=== PATIENT | female | born 1995 | race Caucasian/White ===

== ENCOUNTER 2018-06-26 21:10 | Inpatient (IN) | payer OTHER ==
[~2018-06-26] VITALS: Ht 160 cm; Wt 69.4 kg
[2018-06-26] MEDS ORDERED: SERT50TA5 PO (21:36)
[2018-06-26] MEDS ORDERED: ONDANSETRON ODT 4 MG PO ONE (22:00)
[2018-06-26] MEDS ORDERED: PLEASE ENTER ALLERGIES MC SCH (22:00)
[2018-06-26] MEDS ORDERED: HYDROmorphone 1 MG/ML, 1ML IM ONE (22:00)
[2018-06-26 22:03] LABS: MICROSCOPIC AUTO
[2018-06-26 22:04] LABS: CULTURE INDICATED? YES
[2018-06-26 22:29] LABS: MEAN CORPUSCULAR HEMOGLOBIN 32.8 pg (27.0-34.8); MEAN CORPUSCULAR HGB CONC 34.5 g/dL (32.4-35.8); MEAN CORPUSCULAR VOLUME 95.2 fL (80-100); MEAN PLATELET VOLUME 7.9 fL (7.4-10.4); PLATELET COUNT 271 x10^3/uL (130-400); RED BLOOD COUNT 3.19 x10^6/uL (3.82-5.3); RED CELL DISTRIBUTION WIDTH 15.2 % (9.6-15.2)
[2018-06-26 22:37] LABS: ALANINE AMINOTRANSFERASE 19 U/L (12-78); ALBUMIN 2.4 g/dL (3.4-5.0); ANION GAP 11 mmol/L (5-15); CALCIUM 7.6 mg/dL (8.5-10.1); CHLORIDE 105 mmol/L (98-107); CREATININE 1.07 mg/dL (0.55-1.02)
[2018-06-26 22:42] LABS: ALKALINE PHOSPHATASE 146 U/L (45-117); BILIRUBIN,TOTAL 0.3 mg/dL (0.2-1.0); TOTAL PROTEIN 6.5 g/dL (6.4-8.2)
[2018-06-26 22:51] LABS: MD YES
[2018-06-26 22:54] LABS: ANISOCYTOSIS 1+; BAND#(MANUAL) 1.11 x10^3/uL; BANDS%(MANUAL) 6 % (0-7); LYMPH#(MANUAL) 1.67 x10^3/uL (1-3.4); LYMPHS% (MANUAL) 9 % (22-44); MONOS#(MANUAL) 0.19 x10^3/uL (0.3-2.7); MONOS% (MANUAL) 1 % (2-9); SEG#(MANUAL) 15.54 x10^3/uL (1.8-6.8); SEGS% (MANUAL) 84 % (42-75)
[2018-06-26 22:55] LABS: <PLATELET ESTIMATE> ADEQUATE; <PLT MORPHOLOGY> NORMAL PLT MORPH
[2018-06-26] MEDS ORDERED: HYDROmorphone 2 MG/ML, 1ML ONE (23:10)
[2018-06-26] MEDS ORDERED: ONDANSETRON ODT 4 MG ONE (23:10)
[2018-06-26] MEDS ORDERED: POTASSIUM CHLORIDE 20 MEQ TAB.ER.PRT PO ONE (23:30)
[2018-06-26] MEDS ORDERED: SODIUM CHLORIDE 0.9% 1,000ML IVBOLUS ONE (23:30)
[2018-06-26] MEDS ORDERED: SODIUM CHLORIDE FLUSH 10ML SYR IVF ONE (23:30)
[2018-06-26] MEDS ORDERED: ACETAMINOPHEN 325 MG TABLET PO ONE (23:30)
[2018-06-26] MEDS ORDERED: CEFTRIAXONE 1,000 MG in SODIUM CHLORIDE 0.9% 50 ML IVPB ONE (23:30)
[2018-06-26] MEDS ORDERED: POTASSIUM CHLORIDE 20 MEQ TAB.ER.PRT ONE (23:32)
[2018-06-26] MEDS ORDERED: CEFTRIAXONE PMX 1GM/50ML 50 ML ONE (23:32)
[2018-06-26] MEDS ORDERED: ACETAMINOPHEN 325 MG TABLET ONE (23:32)
[2018-06-27] VITALS (12 sets, daily range): BP systolic 80–107; BP diastolic 46–66
[2018-06-27] MEDS ORDERED: HYDROmorphone 1 MG/ML, 1ML IV ONE
[2018-06-27] MEDS ORDERED: SODIUM CHLORIDE 0.9% 1,000 ML IV SCH (00:03)
[2018-06-27] MEDS ORDERED: CEFTRIAXONE PMX 1GM/50ML 50 ML IV SCH (00:30)
[2018-06-27] MEDS ORDERED: morphine SULFATE 10 MG/ML, 1ML IVPush PRN (00:30)
[2018-06-27] MEDS ORDERED: ONDANSETRON 2MG/ML, 2ML IVPush PRN (00:30)
[2018-06-27] MEDS ORDERED: ONDANSETRON ODT 4 MG PO PRN (00:30)
[2018-06-27] MEDS ORDERED: POTASSIUM CHLORIDE 20 MEQ TAB.ER.PRT PO ONE (01:00)
[2018-06-27] MEDS: CEFTRIAXONE PMX 2GM/50ML 50 ML IV SCH (02:23)
[2018-06-27] MEDS: ENOXAPARIN 40 MG/0.4 ML SQ SCH (02:24)
[2018-06-27] MEDS ORDERED: SODIUM CHLORIDE 0.9% 1,000ML IVBOLUS ONE (03:30)
[2018-06-27 05:13] LABS: ANION GAP 8 mmol/L (5-15); CALCIUM 6.4 mg/dL (8.5-10.1); CHLORIDE 111 mmol/L (98-107)
[2018-06-27 05:14] LABS: CREATININE 0.76 mg/dL (0.55-1.02)
[2018-06-27 05:17] LABS: MEAN CORPUSCULAR HEMOGLOBIN 33.1 pg (27.0-34.8); MEAN CORPUSCULAR HGB CONC 34.8 g/dL (32.4-35.8); MEAN CORPUSCULAR VOLUME 95.2 fL (80-100); MEAN PLATELET VOLUME 8.2 fL (7.4-10.4); PLATELET COUNT 252 x10^3/uL (130-400); RED BLOOD COUNT 2.78 x10^6/uL (3.82-5.3); RED CELL DISTRIBUTION WIDTH 15.7 % (9.6-15.2)
[2018-06-27 06:21] LABS: MD YES
[2018-06-27 06:22] LABS: BAND#(MANUAL) 3.23 x10^3/uL; BANDS%(MANUAL) 15 % (0-7); EOS#(MANUAL) 0.22 x10^3/uL (0.0-0.4); EOS% (MANUAL) 1 % (1-7); LYMPH#(MANUAL) 1.72 x10^3/uL (1-3.4); LYMPHS% (MANUAL) 8 % (22-44); MONOS#(MANUAL) 1.08 x10^3/uL (0.3-2.7); MONOS% (MANUAL) 5 % (2-9); SEG#(MANUAL) 15.27 x10^3/uL (1.8-6.8); SEGS% (MANUAL) 71 % (42-75)
[2018-06-27 06:24] LABS: <PLATELET ESTIMATE> ADEQUATE; <PLT MORPHOLOGY> NORMAL PLT MORPH; <RBC MORPHOLOGY> NORMAL; TOXIC GRAN 1+
[2018-06-27] MEDS ORDERED: MAGNESIUM SULFATE PMX 2GM/50ML 50 ML IV ONE (07:30)
[2018-06-27] MEDS: SODIUM CHLORIDE 0.9% 1,000 ML IV SCH ×3 (08:54→23:26)
[2018-06-27] MEDS: POTASSIUM CHLORIDE 20 MEQ TAB.ER.PRT PO SCH ×2 (08:59→16:56)
[2018-06-27] MEDS: SERTRALINE 50MG TABLET PO SCH (08:59)
[2018-06-27] MEDS: KETOROLAC 30 MG/1 ML IVPush PRN ×2 (10:38→20:53)
[2018-06-27 14:34] LABS: AMPHETAMINE SCREEN, URINE Negative (Negative); BARBITURATE SCREEN, URINE Negative (Negative); BENZODIAZEPINE SCREEN, URINE Negative (Negative); CANNABINOID SCREEN, URINE Negative (Negative); COCAINE SCREEN, URINE Negative (Negative); METHADONE SCREEN, URINE Negative (Negative); OPIATE SCREEN, URINE Negative (Negative)
[2018-06-27] MEDS: ACETAMINOPHEN 325 MG TABLET PO PRN (20:53)
[2018-06-28] MEDS: CEFTRIAXONE PMX 2GM/50ML 50 ML IV SCH (01:42)
[2018-06-28] MEDS: ENOXAPARIN 40 MG/0.4 ML SQ SCH (01:42)
[2018-06-28 01:49] VITALS: BP 97/62
[2018-06-28] MEDS: SODIUM CHLORIDE 0.9% 1,000 ML IV SCH ×3 (03:00→17:08)
[2018-06-28 06:25] LABS: MEAN CORPUSCULAR HEMOGLOBIN 32.7 pg (27.0-34.8); MEAN CORPUSCULAR HGB CONC 33.8 g/dL (32.4-35.8); MEAN CORPUSCULAR VOLUME 96.6 fL (80-100); MEAN PLATELET VOLUME 7.9 fL (7.4-10.4); PLATELET COUNT 305 x10^3/uL (130-400); RED BLOOD COUNT 3.16 x10^6/uL (3.82-5.3); RED CELL DISTRIBUTION WIDTH 16.6 % (9.6-15.2)
[2018-06-28 06:34] LABS: ALANINE AMINOTRANSFERASE 18 U/L (12-78); ALBUMIN 1.9 g/dL (3.4-5.0); ANION GAP 10 mmol/L (5-15); CALCIUM 7.7 mg/dL (8.5-10.1); CHLORIDE 113 mmol/L (98-107); CREATININE 0.86 mg/dL (0.55-1.02)
[2018-06-28 06:36] LABS: ALKALINE PHOSPHATASE 146 U/L (45-117); BILIRUBIN,TOTAL 0.3 mg/dL (0.2-1.0); TOTAL PROTEIN 5.9 g/dL (6.4-8.2)
[2018-06-28 06:43] LABS: BASOPHILS % (AUTO) 0 % (0-1); EOSINOPHILS # (AUTO) 0.01 x10^3/uL (0-0.4); EOSINOPHILS % (AUTO) 0 % (1-7); LYMPHOCYTES # (AUTO) 1.27 x10^3/uL (1-3.4); LYMPHOCYTES % (AUTO) 8 % (22-44); MD SCAN; MONOCYTES # (AUTO) 1.03 x10^3/uL (0.2-0.8); MONOCYTES % (AUTO) 6 % (2-9); NEUTROPHILS # (AUTO) 14.53 x10^3/uL (1.8-6.8); NEUTROPHILS % (AUTO) 86 % (42-75)
[2018-06-28 07:08] VITALS: BP 118/79
[2018-06-28] MEDS ORDERED: SODIUM CHLORIDE 0.9% 1,000 ML IV SCH (08:00)
[2018-06-28] MEDS: SERTRALINE 50MG TABLET PO SCH (08:32)
[2018-06-28] MEDS: KETOROLAC 30 MG/1 ML IVPush PRN ×2 (10:05→19:43)
[2018-06-28 13:24] VITALS: BP 112/70
[2018-06-28] MEDS: ACETAMINOPHEN 325 MG TABLET PO PRN (18:14)
[2018-06-28 20:00] VITALS: BP 122/81
[2018-06-29] MEDS: ENOXAPARIN 40 MG/0.4 ML SQ SCH (00:48)
[2018-06-29 02:00] VITALS: BP 118/77
[2018-06-29] MEDS: SODIUM CHLORIDE 0.9% 1,000 ML IV SCH ×2 (02:01→15:08)
[2018-06-29] MEDS: CEFTRIAXONE PMX 2GM/50ML 50 ML IV SCH (02:01)
[2018-06-29 05:19] LABS: MEAN CORPUSCULAR HEMOGLOBIN 32.5 pg (27.0-34.8); MEAN CORPUSCULAR HGB CONC 34.5 g/dL (32.4-35.8); MEAN CORPUSCULAR VOLUME 94.2 fL (80-100); MEAN PLATELET VOLUME 7.5 fL (7.4-10.4); PLATELET COUNT 344 x10^3/uL (130-400); RED BLOOD COUNT 2.92 x10^6/uL (3.82-5.3); RED CELL DISTRIBUTION WIDTH 15.9 % (9.6-15.2)
[2018-06-29 05:22] LABS: ALBUMIN 1.8 g/dL (3.4-5.0); ANION GAP 9 mmol/L (5-15); CALCIUM 8.2 mg/dL (8.5-10.1); CHLORIDE 111 mmol/L (98-107)
[2018-06-29 05:26] LABS: ALANINE AMINOTRANSFERASE 15 U/L (12-78); ALKALINE PHOSPHATASE 118 U/L (45-117); BILIRUBIN,TOTAL 0.2 mg/dL (0.2-1.0); CREATININE 0.72 mg/dL (0.55-1.02); TOTAL PROTEIN 5.5 g/dL (6.4-8.2)
[2018-06-29 06:03] LABS: BASOPHILS % (AUTO) 0 % (0-1); EOSINOPHILS # (AUTO) 0.03 x10^3/uL (0-0.4); EOSINOPHILS % (AUTO) 0 % (1-7); LYMPHOCYTES # (AUTO) 1.42 x10^3/uL (1-3.4); LYMPHOCYTES % (AUTO) 13 % (22-44); MD SCAN; MONOCYTES # (AUTO) 0.81 x10^3/uL (0.2-0.8); MONOCYTES % (AUTO) 7 % (2-9); NEUTROPHILS # (AUTO) 8.67 x10^3/uL (1.8-6.8); NEUTROPHILS % (AUTO) 79 % (42-75)
[2018-06-29 07:34] VITALS: BP 123/79
[2018-06-29] MEDS: KETOROLAC 30 MG/1 ML IVPush PRN ×2 (07:58→16:28)
[2018-06-29] MEDS: SERTRALINE 50MG TABLET PO SCH (07:59)
[2018-06-29] MEDS ORDERED: LIDOCAINE-MPF 1%, 5ML ONE (09:59)
[2018-06-29 11:28] LABS: GLUCOSE, CSF 59 mg/dL (40-80); TOTAL PROTEIN,CSF 12 mg/dL (15-45)
[2018-06-29 12:20] VITALS: BP 126/84
[2018-06-29 20:00] VITALS: BP 128/86
[2018-06-30] MEDS: SODIUM CHLORIDE 0.9% 1,000 ML IV SCH (01:13)
[2018-06-30] MEDS: CEFTRIAXONE PMX 2GM/50ML 50 ML IV SCH (01:13)
[2018-06-30] MEDS: KETOROLAC 30 MG/1 ML IVPush PRN (01:13)
[2018-06-30 02:00] VITALS: BP 129/84
[2018-06-30 05:34] LABS: BASOPHILS # (AUTO) 0.01 x10^3/uL (0-0.1); BASOPHILS % (AUTO) 0 % (0-1); EOSINOPHILS # (AUTO) 0.04 x10^3/uL (0-0.4); EOSINOPHILS % (AUTO) 1 % (1-7); LYMPHOCYTES # (AUTO) 1.69 x10^3/uL (1-3.4); LYMPHOCYTES % (AUTO) 21 % (22-44); MD NO; MEAN CORPUSCULAR HEMOGLOBIN 32.5 pg (27.0-34.8); MEAN CORPUSCULAR HGB CONC 34.7 g/dL (32.4-35.8); MEAN CORPUSCULAR VOLUME 93.6 fL (80-100); MEAN PLATELET VOLUME 7.3 fL (7.4-10.4); MONOCYTES # (AUTO) 0.82 x10^3/uL (0.2-0.8); MONOCYTES % (AUTO) 10 % (2-9); NEUTROPHILS # (AUTO) 5.58 x10^3/uL (1.8-6.8); NEUTROPHILS % (AUTO) 69 % (42-75); PLATELET COUNT 310 x10^3/uL (130-400)
[2018-06-30 05:38] LABS: CALCIUM 7.2 mg/dL (8.5-10.1); CHLORIDE 112 mmol/L (98-107)
[2018-06-30 05:44] LABS: ALANINE AMINOTRANSFERASE 23 U/L (12-78); ALBUMIN 1.7 g/dL (3.4-5.0); ALKALINE PHOSPHATASE 95 U/L (45-117); ANION GAP 8 mmol/L (5-15); BILIRUBIN,TOTAL 0.3 mg/dL (0.2-1.0); CREATININE 0.69 mg/dL (0.55-1.02); TOTAL PROTEIN 5.3 g/dL (6.4-8.2)
[2018-06-30 07:10] VITALS: BP 129/81
[2018-06-30] MEDS: SERTRALINE 50MG TABLET PO SCH (08:55)
[2018-06-30] MEDS ORDERED: SULF1TAB24 PO (11:01)
== END 2018-06-30 13:06 | disposition home or self-care (01) | DRG 872 ==
LOC: ED 23:38 → EDIP 06-27 → SUATTDRO 06-27 00:03 → 3NE 06-27 01:31 → DCLOUNGE 06-30 12:54
PROVIDERS: ADMIT Hospitalist; ATTEND Family Medicine
PROC: 009U3ZX Drainage of Spinal Canal, Percutaneous Approach, Diagnostic (ICD-10-PCS; principal; 2018-06-29)
PROC: B01B1ZZ Fluoroscopy of Spinal Cord using Low Osmolar Contrast (ICD-10-PCS; 2018-06-29)
DX: A41.9 Sepsis, unspecified organism (principal); N10 Acute pyelonephritis; B96.20 Unspecified Escherichia coli [E. coli] as the cause of diseases classified elsewhere; D64.9 Anemia, unspecified; E83.42 Hypomagnesemia; E87.6 Hypokalemia; F17.210 Nicotine dependence, cigarettes, uncomplicated; M54.2 Cervicalgia; R51 Headache; F32.9 Major depressive disorder, single episode, unspecified
CPT/HCPCS: 36415; 62270; 71046; 76700; 80048; 80053; 80307; 81001; 82945; 83605; 83690; 83735; 84100; 84145; 84157; 84703; 85025; 87040; 87070; 87077; 87086; 87186; 87205; 87252; 87255; 89051; 96365; 96375; G0378; J0696; J1170; J1650; J1885; Q0162; J2270; J3475; J7030